=== PATIENT | female | born 1985 | race Asian ===

== ENCOUNTER 2017-07-27 11:26 | Emergency (ER) | payer SELFPAY ==
[~2017-07-27] VITALS: Ht 162.6 cm; Wt 94.0 kg
[2017-07-27 11:28] VITALS: BP 184/104; PULSE 98; RESP 22; TEMP 98.4; O2SAT 98
[2017-07-27] MEDS ORDERED: PRED20 PO (13:10)
[2017-07-27] MEDS ORDERED: SODIUM CHLOR 0.9% 1000 ML INJ 1,000 ML IV ONE (13:30)
[2017-07-27] MEDS ORDERED: SODIUM CHLORIDE 0.9% FLUSH 10 ML FLUSH IVF PRN (13:30)
--- NOTE | 2017-07-27 13:41 | PD ---
HPI Chief Complaint: Numbness/Tingling Time Seen by Provider: 12:53 Travel History International Travel<30 days: No Contact w/Intl Traveler<30days: No Traveled to known affect area: No History of Present Illness HPI Patient is a 32-year-old female who presents to emergency room with multiple complaints. Patient reports that since last Thursday, she has been having palpitations and a tightness to her chest. She reports that when she has these pains, she feels a numbness and tingling sensation that starts from her head all way down her body to her toes. Patient reports that symptoms only lasted for a few hours and resolved on its own, she was seen at an outside hospital and was given a prescription for steroids, reports that she began to have repeat symptoms today. Patient reports that she has been coughing, reports that cough has been nonproductive. Denies any fevers, reports that she's been having chills. Reports the chest pain as sharp and stabbing in nature. Patient reports no sick contacts, denies history of hypertension or hyperlipidemia or coronary artery disease. Patient is a nonsmoker, does not use any control pills. Patient reports only history of superficial thrombophlebitis at that she delivered her daughter. Patient denies any headache or dizziness at this time, patient with no other complaints. PFSH Past Medical History Medical History: Denies Significant Hx Diminished Hearing: No Influenza Vaccination: No ?: Not LMP: 07/23/2017 Past Surgical History Tonsillectomy: Yes (tonsils and adnoids) Other Surgery: Yes (lipoma removal and vericose veins removed) Social History Alcohol Use: Yes (socially but rare) Tobacco Use: No Substance Use: No Allergies-Medications (Allergen,Severity, Reaction): Coded Allergies: Penicillins (Verified Allergy, Intermediate, HIVES, 07/27/17) Reported Meds & Prescriptions Reported Meds & Active Scripts Active Reported Prednisone 20 Mg Tab 40 Mg PO DAILY 3 Days Take 40 mg (2 tablets) daily for 5 days Review of Systems General / Constitutional: Positive: Chills, No: Fever Eyes: No: Visual changes HENT: No: Headaches, Lightheadedness Cardiovascular: Positive: Chest Pain or Discomfort, Palpitations Respiratory: No: Shortness of Breath Gastrointestinal: No: Abdominal Pain Genitourinary: No: Dysuria Musculoskeletal: No: Pain Skin: No Rash Neurologic: Positive: Paresthesia, No: Weakness, Dizziness, Syncope, Tremor, Headache, Seizures Psychiatric: No: Depression Endocrine: No: Polydipsia Hematologic/Lymphatic: No: Easy Bruising Physical Exam Narrative GENERAL: Mild distress SKIN: Focused skin assessment warm/dry. HEAD: Atraumatic. Normocephalic. EYES: Pupils equal and round. No scleral icterus. No injection or drainage. ENT: No nasal bleeding or discharge. Mucous membranes pink and moist. NECK: Trachea midline. No JVD. CARDIOVASCULAR: Regular rate and rhythm. No murmur appreciated. RESPIRATORY: No accessory muscle use. Clear to auscultation. Breath sounds equal bilaterally. GASTROINTESTINAL: Abdomen soft, non-tender, nondistended. Hepatic and splenic margins not palpable. MUSCULOSKELETAL: No obvious deformities. No clubbing. No cyanosis. No edema. Patient with no calf tenderness NEUROLOGICAL: Awake and alert. No obvious cranial nerve deficits. Motor grossly within normal limits. Normal speech. CN 2-12 grossly intact with no neuro deficits PSYCHIATRIC: Anxious mood and affect; insight and judgment normal. Data Data Last Documented VS Vital Signs Date Time Temp Pulse Resp B/P (MAP) Pulse Ox O2 Delivery O2 Flow Rate FiO2 07/27/17 16:04 63 20 152/97 (115) 100 Room Air 07/27/17 11:28 98.4 Orders Orders Electrocardiogram (07/27/17 ) Electrocardiogram (07/27/17 13:28) Ckmb (Isoenzyme) Profile (07/27/17 13:28) Complete Blood Count With Diff (07/27/17 13:28) Comprehensive Metabolic Panel (07/27/17 13:28) D-Dimer (07/27/17 13:28) Prothrombin Time / Inr (Pt) (07/27/17 13:28) Act Partial Throm Time (Ptt) (07/27/17 13:28) Troponin I (07/27/17 13:28) Chest, Single Ap (07/27/17 13:28) Ecg Monitoring (07/27/17 13:28) Iv Access Insert/Monitor (07/27/17 13:28) Oximetry (07/27/17 13:28) Sodium Chloride 0.9% Flush (Ns Flush) (07/27/17 13:30) Ed Urine Pregnancytest Poc (07/27/17 13:28) Sodium Chlor 0.9% 1000 Ml Inj (Ns 1000 M (07/27/17 13:30) Lorazepam Inj (Ativan Inj) (07/27/17 13:45) Ketorolac Inj (Toradol Inj) (07/27/17 16:00) Electrocardiogram (07/27/17 ) Ed Discharge Order (07/27/17 16:39) Labs Laboratory Tests Test 07/27/17 14:03 White Blood Count 12.8 TH/MM3 Red Blood Count 4.51 MIL/MM3 Hemoglobin 14.1 GM/DL Hematocrit 40.9 % Mean Corpuscular Volume 90.7 FL Mean Corpuscular Hemoglobin 31.3 PG Mean Corpuscular Hemoglobin Concent 34.5 % Red Cell Distribution Width 13.3 % Platelet Count 333 TH/MM3 Mean Platelet Volume 7.9 FL Neutrophils (%) (Auto) 76.3 % Lymphocytes (%) (Auto) 18.2 % Monocytes (%) (Auto) 5.3 % Eosinophils (%) (Auto) 0.0 % Basophils (%) (Auto) 0.2 % Neutrophils # (Auto) 9.7 TH/MM3 Lymphocytes # (Auto) 2.3 TH/MM3 Monocytes # (Auto) 0.7 TH/MM3 Eosinophils # (Auto) 0.0 TH/MM3 Basophils # (Auto) 0.0 TH/MM3 CBC Comment DIFF FINAL Differential Comment Prothrombin Time 12.8 SEC Prothromb Time International Ratio 1.2 RATIO Activated Partial Thromboplast Time 28.9 SEC D-Dimer Quantitative (PE/DVT) LESS THAN 0.19 MG/L FEU Blood Urea Nitrogen 9 MG/DL Creatinine 0.61 MG/DL Random Glucose 80 MG/DL Total Protein 7.4 GM/DL Albumin 3.8 GM/DL Calcium Level 8.6 MG/DL Alkaline Phosphatase 89 U/L Aspartate Amino Transf (AST/SGOT) 16 U/L Alanine Aminotransferase (ALT/SGPT) 43 U/L Total Bilirubin 0.4 MG/DL Sodium Level 141 MEQ/L Potassium Level 3.5 MEQ/L Chloride Level 109 MEQ/L Carbon Dioxide Level 25.9 MEQ/L Anion Gap 6 MEQ/L Estimat Glomerular Filtration Rate 112 ML/MIN Total Creatine Kinase 69 U/L Troponin I LESS THAN 0.02 NG/ML MDM Medical Decision Making Medical Screen Exam Complete: Yes Emergency Medical Condition: Yes Medical Record Reviewed: Yes Interpretation(s) EKG at 1142: NSR at 78bpm, qt/qtc: 373/406, no acute st or t wave changes Vital Signs Date Time Temp Pulse Resp B/P (MAP) Pulse Ox O2 Delivery O2 Flow Rate FiO2 07/27/17 11:28 98.4 98 22 184/104 (130) 98 Differential Diagnosis acs, arrhythmia, PE, anxiety reaction, pneumonia, electrolyte abnormality Narrative Course Patient was placed on a cardiac exam upon arrival to the emergency room. Lab work including CBC, CMP, d-dimer ordered. 1 set of cardiac enzymes was ordered to rule out infectious etiology of chest pain including but not limited to pericarditis/endocarditis, it was not ordered to rule out ACS. Xray of chest ordered. IVF as well as ativan ordered as patient does appear to be anxious at this time. CBC & BMP Diagram 07/27/17 14:03 WBC 12.8 - most likely due to taking steroids. Total Protein 7.4, Albumin 3.8, Calcium Level 8.6, Alkaline Phosphatase 89, Aspartate Amino Transf (AST/SGOT) 16, Alanine Aminotransferase (ALT/SGPT) 43, Total Bilirubin 0.4 trop less than 0.02, d.dimer less than 0.19 Last Impressions Chest X-Ray 07/27/17 1328 Signed Impressions: Service Date/Time: Thursday, July 27, 2017 13:52 - CONCLUSION: The lungs are clear. Rj Murrieta MD All labs reviewed, patient at this time temp is no acute emergencies. VSS. Plan for patient to follow-up with primary care doctor and to return to emergency room if symptoms worsen or progress or return. She reports complete resolution of symptoms at this time. Patient will return to ER as needed Diagnosis Primary Impression: Heart palpitations Additional Impressions: Paresthesias Chest pain Qualified Codes: R07.9 - Chest pain, unspecified Costochondritis Patient Instructions: General Instructions Additional Instructions: Please provide patient with a copy of their lab work and studies at discharge* * Please follow up with your primary care doctor in 2-3 days Return to the ER if symptoms worsen or progress Return to the ER as needed Disposition: 01 DISCHARGE HOME Condition: Stable Nilsa Coyne DO Jul 27, 2017 13:41
[2017-07-27] MEDS ORDERED: LORazepam 2 MG/ML VIAL IV PUSH ONE (13:45)
[2017-07-27 14:35] VITALS: O2SAT 99
--- NOTE | 2017-07-27 14:49 | RADRPT ---
EXAM DATE/TIME: 07/27/2017 13:52 [facility] COMPARISON: No previous studies available for comparison. INDICATIONS : Chest pain, tightness in chest. MEDICAL HISTORY : None. SURGICAL HISTORY : None. ENCOUNTER: Initial ACUITY: 3 days PAIN SCORE: 5/10 LOCATION: Bilateral chest FINDINGS: A single view of the chest demonstrates the lungs to be symmetrically aerated without evidence of mas s, infiltrate or effusion. The cardiomediastinal contours are unremarkable. Osseous structures are intact. CONCLUSION: The lungs are clear. Rj Murrieta MD on July 27, 2017 at 14:46 Board Certified Radiologist. This report was verified electronically.
[2017-07-27 15:06] LABS: AUTOMATED NEUTROPHIL # 9.7 TH/MM3 (1.8-7.7); BASOPHIL % 0.2 % (0.0-2.0); HEMATOCRIT 40.9 % (35.0-46.0); HEMOGLOBIN 14.1 GM/DL (11.6-15.3); LYMPH % 18.2 % (9.0-44.0); LYMPHOCYTE # 2.3 TH/MM3 (1.0-4.8); MEAN CELL VOLUME 90.7 FL (80.0-100.0); MEAN CORPUSCULAR HEMOGLOBIN 31.3 PG (27.0-34.0); MEAN CORPUSCULAR HGB CONC 34.5 % (32.0-36.0); MEAN PLATELET VOLUME 7.9 FL (7.0-11.0); MONO % 5.3 % (0.0-8.0); MONOCYTE # 0.7 TH/MM3 (0-0.9); NEUT % 76.3 % (16.0-70.0); PLATELET COUNT 333 TH/MM3 (150-450); RED BLOOD COUNT 4.51 MIL/MM3 (4.00-5.30); RED CELL DISTRIBUTION WIDTH 13.3 % (11.6-17.2); WHITE BLOOD COUNT 12.8 TH/MM3 (4.0-11.0)
[2017-07-27 15:44] LABS: INTERNATIONAL NORMALIZED RATIO 1.2 RATIO; PROTHROMBIN TIME - PATIENT 12.8 SEC (9.8-11.6)
[2017-07-27 15:46] LABS: ALBUMIN 3.8 GM/DL (3.4-5.0); ALT (GPT) 43 U/L (10-53); AST (GOT) 16 U/L (15-37); BICARBONATE 25.9 MEQ/L (21.0-32.0); BLOOD UREA NITROGEN 9 MG/DL (7-18); CALCIUM 8.6 MG/DL (8.5-10.1); CHLORIDE 109 MEQ/L (98-107); CREATININE 0.61 MG/DL (0.50-1.00); GLOMERULAR FILTRATION RATE 112 ML/MIN (>89); GLUCOSE,RANDOM 80 MG/DL (74-106); SODIUM (NA) 141 MEQ/L (136-145)
[2017-07-27 15:50] LABS: ALKALINE PHOSPHATASE 89 U/L (45-117); TOTAL BILIRUBIN ADULT 0.4 MG/DL (0.2-1.0); TOTAL PROTEIN 7.4 GM/DL (6.4-8.2); TROPONIN I LESS THAN 0.02 NG/ML (0.02-0.05)
[2017-07-27 15:56] LABS: D-DIMER LESS THAN 0.19 MG/L FEU (0.00-0.50)
[2017-07-27] MEDS ORDERED: KETOROLAC TROMETHAMINE 30 MG/ML (IVP) VIAL IV PUSH ONE (16:00)
[2017-07-27 16:04] VITALS: BP 152/97; PULSE 63; RESP 20; O2SAT 100
--- NOTE | 2017-07-28 15:21 | EKG ---
Date Performed: 07/27/2017 Time Performed: 11:42:25 PTAGE: 32 years EKG: Sinus rhythm BORDERLINE RIGHT AXIS DEVIATION MODERATE INTRAVENTRICULAR CONDUCTION DELAY BORDERLINE ECG NO PREVIOUS TRACING DOCTOR: Conor Mao Interpretating Date/Time 07/28/2017 15:21:03
--- NOTE | 2017-07-28 15:22 | EKG ---
Date Performed: 07/27/2017 Time Performed: 16:54:40 PTAGE: 32 years EKG: Sinus rhythm BORDERLINE RIGHT AXIS DEVIATION MODERATE INTRAVENTRICULAR CONDUCTION DELAY BORDERLINE ECG Compared t o prior tracing no significant change PREVIOUS TRACING : 07/27/2017 11.42 DOCTOR: Conor Mao Interpretating Date/Time 07/28/2017 15:21:11
== END 2017-07-27 17:38 | disposition home or self-care (01) ==
LOC: NEPD 11:26
DX: R00.2 Palpitations (principal); R20.2 Paresthesia of skin; M94.0 Chondrocostal junction syndrome [Tietze]
CPT/HCPCS: 71010; 80053; 82550; 84484; 84703; 85025; 85379; 85610; 85730; 93005; 96361; 96374; 96375; 99285; J1885; J2060; J7030